=== PATIENT | female | born 1960 | race African-American/Black ===

== ENCOUNTER 2016-08-25 13:23 | Emergency (ER) | payer OTHER ==
[2016-08-25] MEDS ORDERED: ONDANSETRON 4 MG TAB.RAPDIS PO ONE (13:27)
[2016-08-25] MEDS ORDERED: MECLIZINE HCL 25 MG TABLET PO ONE (13:27)
--- NOTE | 2016-08-25 13:30 | ER Document Report ---
ED Medical Screen (RME) - General Stated Complaint: DIZZY Mode of Arrival: Ambulatory Information source: Patient Notes: Patient presents to the emergency department with complaints of feeling dizzy a history of vertigo. Patient reports she vomited one time because of the dizziness. Denies other symptoms such as chest pain fever or diarrhea. Patient reports she took one meclizine this morning at approximately 10:00. I have greeted and performed a rapid initial assessment of this patient. A comprehensive ED assessment and evaluation of the patient, analysis of test results and completion of the medical decision making process will be conducted by additional ED providers. TRAVEL OUTSIDE OF THE [place] IN LAST 30 DAYS: No - Related Data Allergies/Adverse Reactions: acetaminophen [From Darvocet-N 100] Allergy (Intermediate, Verified 08/25/16 13: 25) VOMITING codeine [Codeine] Allergy (Intermediate, Verified 08/25/16 13:25) hives, facial and arm swelling propoxyphene napsylate [From Darvocet-N 100] Allergy (Intermediate, Verified 13:25) VOMITING aspirin [Aspirin] Adverse Reaction (Mild, Verified 08/25/16 13:25) Past Medical History - Past Medical History Cardiac Medical History: Reports: Hx Coronary Artery Disease, Hx Hypercholesterolemia, Hx Hypertension Denies: Hx Heart Attack Pulmonary Medical History: Reports: Hx Asthma, Hx Bronchitis - gets each year Denies: Hx COPD, Hx Pneumonia, Hx Tuberculosis Neurological Medical History: Denies: Hx Cerebrovascular Accident, Hx Seizures Musculoskeltal Medical History: Reports Hx Arthritis - r hand Past Surgical History: Reports: Hx Hysterectomy, Hx Orthopedic Surgery - carpal tunnel repair. Denies: Hx Pacemaker - Immunizations Immunizations up to date: Yes Hx Diphtheria, Pertussis, Tetanus Vaccination: Yes - UTD
--- NOTE | 2016-08-25 13:48 | EKG REPORT ---
SEVERITY:- BORDERLINE ECG - SINUS RHYTHM BORDERLINE T ABNORMALITIES, ANTERIOR LEADS : Confirmed by: Katie Dover 25-Aug-2016 13:47:46
[2016-08-25] MEDS ORDERED: DEXAMETHASONE 4 MG TABLET PO ONE (14:35)
[2016-08-25 15:23] VITALS: BP 132/76
--- NOTE | 2016-08-25 16:19 | ER Document Report ---
ED General - General Chief Complaint: Dizziness Stated Complaint: DIZZY Mode of Arrival: Ambulatory TRAVEL OUTSIDE OF THE [place] IN LAST 30 DAYS: No - HPI Patient complains to provider of: vomiting dizziness Notes: Patient states today she has some vomiting and dizziness patient upon my evaluation is lying on her left side no other distress able to sit up without any difficulty. Patient states feeling sick and unwell since last night. Patient denies any history trauma denies fevers chills diarrhea denies sick contacts unaware for flu status at this time. - Related Data Allergies/Adverse Reactions: acetaminophen [From Darvocet-N 100] Allergy (Intermediate, Verified 08/25/16 13: 25) VOMITING codeine [Codeine] Allergy (Intermediate, Verified 08/25/16 13:25) hives, facial and arm swelling propoxyphene napsylate [From Darvocet-N 100] Allergy (Intermediate, Verified 13:25) VOMITING aspirin [Aspirin] Adverse Reaction (Mild, Verified 08/25/16 13:25) Past Medical History - General Information source: Patient - Social History Smoking Status: Never Smoker Chew tobacco use (# tins/day): No Frequency of alcohol use: None Drug Abuse: None Family History: Reviewed & Not Pertinent Patient has suicidal ideation: No Patient has homicidal ideation: No - Past Medical History Cardiac Medical History: Reports: Hx Coronary Artery Disease, Hx Hypercholesterolemia, Hx Hypertension Denies: Hx Heart Attack Pulmonary Medical History: Reports: Hx Asthma, Hx Bronchitis - gets each year Denies: Hx COPD, Hx Pneumonia, Hx Tuberculosis Neurological Medical History: Denies: Hx Cerebrovascular Accident, Hx Seizures Renal/ Medical History: Denies: Hx Peritoneal Dialysis Musculoskeltal Medical History: Reports Hx Arthritis - r hand Past Surgical History: Reports: Hx Hysterectomy, Hx Orthopedic Surgery - carpal tunnel repair. Denies: Hx Pacemaker - Immunizations Immunizations up to date: Yes Hx Diphtheria, Pertussis, Tetanus Vaccination: Yes - UTD Hx Pneumococcal Vaccination: 04/15/12 Review of Systems - Review of Systems Constitutional: No symptoms reported EENT: No symptoms reported Cardiovascular: No symptoms reported Respiratory: No symptoms reported Gastrointestinal: Nausea Genitourinary: No symptoms reported Female Genitourinary: No symptoms reported Musculoskeletal: No symptoms reported Skin: No symptoms reported Hematologic/Lymphatic: No symptoms reported Neurological/Psychological: Other - Dizziness -: Yes All other systems reviewed and negative Physical Exam - Vital signs Vitals: Temp Pulse Resp BP Pulse Ox 98 F 73 20 138/89 H 99 08/25/16 13:25 08/25/16 13:25 08/25/16 13:25 08/25/16 13:25 08/25/16 13:25 Interpretation: Normal - General General appearance: Appears well, Alert - HEENT Head: Normocephalic, Atraumatic Eyes: Normal Conjunctiva: Normal Cornea: Normal Extraocular movements intact: Yes Eyelashes: Normal Pupils: PERRL Ears: Normal External canal: Normal Tympanic membrane: Normal Sinus: Normal Nasal: Normal Pharynx: Normal Neck: Normal - Respiratory Respiratory status: No respiratory distress Chest status: Nontender Breath sounds: Normal Chest palpation: Normal - Cardiovascular Rhythm: Regular Heart sounds: Normal auscultation Murmur: No - Abdominal Inspection: Normal Distension: No distension Bowel sounds: Normal Tenderness: Nontender Organomegaly: No organomegaly - Back Back: Normal, Nontender - Extremities General upper extremity: Normal inspection, Nontender, Normal color, Normal ROM , Normal temperature General lower extremity: Normal inspection, Nontender, Normal color, Normal ROM , Normal temperature, Normal weight bearing. No: Shellie's sign - Neurological Neuro grossly intact: Yes Cognition: Normal Orientation: AAOx4 [place] Coma Scale Eye Opening: Spontaneous [place] Coma Scale Verbal: Oriented Patricia Coma Scale Motor: Obeys Commands [place] Coma Scale Total: 15 Speech: Normal Motor strength normal: LUE, RUE, LLE, RLE Sensory: Normal - Psychological Associated symptoms: Normal affect, Normal mood - Skin Skin Temperature: Warm Skin Moisture: Dry Skin Color: Normal Course - Re-evaluation Re-evalutation: 08/25/16 19:09 Patient at this time see be asymptomatic. Patient will be discharged home with medications for dizziness and nausea. Patient was encouraged to drink clear fluids will likely developing viral illness. Patient was also educated about the use of Bridger maneuver - Vital Signs Vital signs: Temp Pulse Resp BP Pulse Ox 98.4 F 64 18 132/76 H 97 08/25/16 15:09 08/25/16 15:09 08/25/16 15:09 08/25/16 15:09 08/25/16 15:09 Discharge - Discharge Clinical Impression: Dizziness, Sore throat (viral) Nausea & vomiting Qualifiers: Vomiting type: unspecified Vomiting Intractability: unspecified Qualified Code( s): R11.2 - Nausea with vomiting, unspecified Condition: Good Disposition: HOME, SELF-CARE Instructions: Dizziness ([facility]), Meclizine ([facility]), Vertigo ([facility]), Nausea or Vomiting, Nonspecific ([facility]), Sore Throat ([facility]) Additional Instructions: Your examination today shows no critical etiology. Please follow-up with your primary care physician. Please try the Bridger maneuver at home. Follow the instructions in your discharge papers. Take medications as prescribed. Prescriptions: Ondansetron [Zofran Odt 4 mg Tablet] 1 - 2 tab PO Q4HP PRN #20 tab.rapdis PRN Reason: Meclizine HCl [Motion Relief] 25 mg PO TID #14 tablet Referrals: ANDREW LUJAN MD [Primary Care Provider] - Follow up in 3-5 days
== END 2016-08-25 15:22 | disposition home or self-care (01) ==
LOC: ER 13:23
DX: J02.9 Acute pharyngitis, unspecified (principal); R11.2 Nausea with vomiting, unspecified; R42 Dizziness and giddiness; I10 Essential (primary) hypertension; I25.10 Atherosclerotic heart disease of native coronary artery without angina pectoris; E78.00 Pure hypercholesterolemia, unspecified; Z90.710 Acquired absence of both cervix and uterus; Z88.6 Allergy status to analgesic agent
CPT/HCPCS: 93005; 99284; 93010; S0119

== ENCOUNTER 2016-09-30 13:58 | Emergency (ER) | payer OTHER ==
[2016-09-30] MEDS ORDERED: HYDROCODONE/ACETAMINOPHEN 5-325 MG TABLET PO ONE (15:17)
[2016-09-30] MEDS ORDERED: ONDANSETRON 4 MG TAB.RAPDIS SL ONE (15:17)
--- NOTE | 2016-09-30 15:19 | ER Document Report ---
ED Medical Screen (RME) - General Chief Complaint: Headache Stated Complaint: HEADACHE Time seen by provider: 15:18 Mode of Arrival: Ambulatory Information source: Patient TRAVEL OUTSIDE OF THE [place] IN LAST 30 DAYS: No - HPI Patient complains to provider of: headache, runny nose, nausea Onset: Yesterday Onset/Duration: Gradual Quality of pain: Achy, Dull Severity: Moderate Pain Level: 3 Associated Symptoms: Body/muscle aches, Chills, Headache, Nausea, Sweating Exacerbated by: Denies Relieved by: Denies Similar symptoms previously: No Recently seen / treated by doctor: Yes - Related Data Allergies/Adverse Reactions: acetaminophen [From Darvocet-N 100] Allergy (Intermediate, Verified 09/30/16 14: 18) VOMITING codeine [Codeine] Allergy (Intermediate, Verified 09/30/16 14:18) hives, facial and arm swelling propoxyphene napsylate [From Darvocet-N 100] Allergy (Intermediate, Verified 14:18) VOMITING aspirin [Aspirin] Adverse Reaction (Mild, Verified 09/30/16 14:18) Past Medical History - Social History Chew tobacco use (# tins/day): No Frequency of alcohol use: Occasional Drug Abuse: None - Past Medical History Cardiac Medical History: Reports: Hx Coronary Artery Disease, Hx Hypercholesterolemia, Hx Hypertension Denies: Hx Heart Attack Pulmonary Medical History: Reports: Hx Asthma, Hx Bronchitis - gets each year Denies: Hx COPD, Hx Pneumonia, Hx Tuberculosis Neurological Medical History: Denies: Hx Cerebrovascular Accident, Hx Seizures Renal/ Medical History: Denies: Hx Peritoneal Dialysis Musculoskeltal Medical History: Reports Hx Arthritis - r hand Past Surgical History: Reports: Hx Hysterectomy, Hx Orthopedic Surgery - carpal tunnel repair. Denies: Hx Pacemaker - Immunizations Immunizations up to date: Yes Hx Diphtheria, Pertussis, Tetanus Vaccination: Yes - UTD Physical Exam - Vital signs Vitals: Temp Pulse Resp BP Pulse Ox 98.6 F 112 H 22 H 114/73 95 09/30/16 14:19 09/30/16 14:19 09/30/16 14:19 09/30/16 14:19 09/30/16 14:19 Course - Vital Signs Vital signs: Temp Pulse Resp BP Pulse Ox 98.6 F 112 H 22 H 114/73 95 09/30/16 14:19 09/30/16 14:19 09/30/16 14:19 09/30/16 14:19 09/30/16 14:19
[2016-09-30 15:43] LABS: APPEARANCE,URINE CLEAR; BILIRUBIN,URINE NEGATIVE (NEGATIVE); GLUCOSE, URINE NEGATIVE (NEGATIVE); KETONES,URINE NEGATIVE (NEGATIVE); LEUKOCYTE ESTERASE,URINE MODERATE (NEGATIVE); NITRITE,URINE NEGATIVE (NEGATIVE); PROTEIN,URINE 30 mg/dL (NEGATIVE); URINE SPECIFIC GRAVITY 1.004; UROBILINOGEN,URINE NEGATIVE mg/dL (<2.0)
[2016-09-30 15:46] LABS: HEMATOCRIT 37.2 % (36.0-47.0); HEMOGLOBIN 13.1 g/dL (12.0-15.5); HGB HCT DIFFERENCE 2.1; MEAN CORPUSCULAR HEMOGLOBIN 31.7 pg (27.0-33.4); MEAN CORPUSCULAR HGB CONC 35.3 g/dL (32.0-36.0); MEAN CORPUSCULAR VOLUME 90 fl (80-97); RED BLOOD COUNT 4.15 10^6/uL (3.72-5.28); RED CELL DISTRIBUTION WIDTH 12.8 % (11.5-14.0)
[2016-09-30 15:49] LABS: ALANINE AMINOTRANSFERASE 27 U/L (9-52); ALBUMIN 4.2 g/dL (3.5-5.0); ALKALINE PHOSPHATASE 77 U/L (38-126); ANION GAP 15 (5-19); ASPARTATE AMINO TRANSFERASE 26 U/L (14-36); BILIRUBIN,DIRECT 0.3 mg/dL (0.0-0.4); BLOOD UREA NITROGEN 8 mg/dL (7-20); CALCIUM 9.4 mg/dL (8.4-10.2); CARBON DIOXIDE 32 mmol/L (22-30); CHLORIDE 92 mmol/L (98-107); CREATININE RESULT 0.97 mg/dL (0.52-1.25); GLUCOSE 156 mg/dL (75-110); LIPASE 28.4 U/L (23-300); POTASSIUM 3.2 mmol/L (3.6-5.0); SODIUM 138.7 mmol/L (137-145); TOTAL PROTEIN 7.3 g/dL (6.3-8.2)
[2016-09-30 16:01] LABS: BAND NEUTROPHILS % (MANUAL) 3 % (3-5); BASOPHILS % (MANUAL) 0 % (0-2); EOSINOPHILS % (MANUAL) 0 % (0-6); LYMPHOCYTES % (MANUAL) 5 % (13-45); TOTAL CELLS COUNTED 100
[2016-09-30 16:02] LABS: OVALOCYTES SLIGHT
[2016-09-30 16:03] LABS: POIKILOCYTOSIS SLIGHT
--- NOTE | 2016-09-30 17:07 | ER Document Report ---
ED General - General Chief Complaint: Headache Stated Complaint: HEADACHE Mode of Arrival: Ambulatory Information source: Patient TRAVEL OUTSIDE OF THE [place] IN LAST 30 DAYS: No - HPI Onset: Other - 2 DAYS Onset/Duration: Sudden Quality of pain: Dull, Other - "FEELS LIKE GRAVEL IN MY HEAD" Severity: Mild Associated symptoms: Chills, Nausea, Sweating. denies: Diarrhea, Vomiting Exacerbated by: Standing Relieved by: Supine Similar symptoms previously: Yes - SAYS "VERTIGO" Recently seen / treated by doctor: No - Related Data Allergies/Adverse Reactions: acetaminophen [From Darvocet-N 100] Allergy (Intermediate, Verified 09/30/16 14: 18) VOMITING codeine [Codeine] Allergy (Intermediate, Verified 09/30/16 14:18) hives, facial and arm swelling propoxyphene napsylate [From Darvocet-N 100] Allergy (Intermediate, Verified 14:18) VOMITING aspirin [Aspirin] Adverse Reaction (Mild, Verified 09/30/16 14:18) Home Medications: Current Home Medications Acyclovir [Zovirax 200 mg Capsule] 200 mg PO Q4H 09/30/16 [History] Ammonium Lactate [Amlactin] 57 gm TP BID 09/30/16 [History] Aspirin [Aspirin 81 mg Chewable Tablet] 81 mg PO DAILY 09/30/16 [History] Atenolol/Chlorthalidone [Tenoretic 100 Tablet] 100 mg PO DAILY 09/30/16 [History ] Celecoxib [Celebrex 200 mg Capsule] 200 mg PO DAILY 09/30/16 [History] Duloxetine HCl [Cymbalta] 30 mg PO BID 09/30/16 [History] Fluticasone/Salmeterol [Advair 250-50 Diskus 14 Dose/Diskus] 1 inh IH Q12H 09/30 [History] Losartan/Hydrochlorothiazide [Hyzaar 100-12.5 Tablet] 1 each PO DAILY 09/30/16 [ History] Lurasidone HCl [Latuda] 40 mg PO DAILY 09/30/16 [History] Promethazine HCl [Phenergan 25 mg Tablet] 25 mg PO ASDIR PRN 09/30/16 [History] Valacyclovir HCl [Valacyclovir] 1,000 mg PO TID 09/30/16 [History] Zoster Vaccine Live/Pf [Zostavax Vial] 19,400 unit SQ ASDIR PRN 09/30/16 [ History] Past Medical History - General Information source: Patient - Social History Smoking Status: Never Smoker Chew tobacco use (# tins/day): No Frequency of alcohol use: Occasional Drug Abuse: None Lives with: Family Family History: Reviewed & Not Pertinent Patient has suicidal ideation: No Patient has homicidal ideation: No - Past Medical History Cardiac Medical History: Reports: Hx Coronary Artery Disease, Hx Hypercholesterolemia, Hx Hypertension Denies: Hx Heart Attack Pulmonary Medical History: Reports: Hx Asthma, Hx Bronchitis - gets each year Denies: Hx COPD, Hx Pneumonia, Hx Tuberculosis Neurological Medical History: Denies: Hx Cerebrovascular Accident, Hx Seizures Renal/ Medical History: Denies: Hx Peritoneal Dialysis Musculoskeltal Medical History: Reports Hx Arthritis - r hand Past Surgical History: Reports: Hx Hysterectomy, Hx Orthopedic Surgery - carpal tunnel repair. Denies: Hx Pacemaker - Immunizations Immunizations up to date: Yes Hx Diphtheria, Pertussis, Tetanus Vaccination: Yes - UTD Hx Pneumococcal Vaccination: 04/15/12 Review of Systems - Review of Systems Constitutional: See HPI EENT: Other - TINNITUS, CHRONIC. denies: Eye pain, Blurred vision, Tearing, Ear pain, Throat pain Cardiovascular: No symptoms reported Respiratory: No symptoms reported Gastrointestinal: See HPI Genitourinary: No symptoms reported Female Genitourinary: Post menopausal Musculoskeletal: No symptoms reported Skin: No symptoms reported Neurological/Psychological: See HPI Physical Exam - Vital signs Vitals: Temp Pulse Resp BP Pulse Ox 98.6 F 112 H 22 H 114/73 95 09/30/16 14:19 09/30/16 14:19 09/30/16 14:19 09/30/16 14:19 09/30/16 14:19 Interpretation: Tachycardic, Tachypneic. No: Hypotensive, Hypertensive, Febrile - General General appearance: Appears well, Alert In distress: None - HEENT Head: Normocephalic Eyes: Normal Conjunctiva: Normal Ears: Normal Nasal: Normal Mouth/Lips: Normal Mucous membranes: Normal Pharynx: Normal Neck: Normal, Supple - FLEXES [id number] W/ NO DIFFICULTY - Respiratory Respiratory status: No respiratory distress Breath sounds: Normal - Cardiovascular Rhythm: Regular, Tachycardia Heart sounds: Normal auscultation Murmur: No - Abdominal Inspection: Normal Distension: No distension Bowel sounds: Normal - Back Back: Normal, CVA tenderness - RIGHT - Extremities General upper extremity: Normal inspection General lower extremity: Normal inspection - Neurological Neuro grossly intact: Yes Cognition: Normal Orientation: AAOx4 - Psychological Associated symptoms: Normal affect, Normal mood - Skin Skin Temperature: Warm Skin Moisture: Dry Skin Color: Normal Skin Turgor: Elastic Course - Re-evaluation Re-evalutation: 09/30/16 19:58 Patient reports she feels better, headache much improved. Diagnosis and treatment plan discussed with patient. - Vital Signs Vital signs: Temp Pulse Resp BP Pulse Ox 97.5 F 91 18 108/65 99 09/30/16 19:03 09/30/16 19:03 09/30/16 19:03 09/30/16 19:03 09/30/16 19:03 - Laboratory Result Diagrams: 09/30/16 15:20 09/30/16 15:20 Laboratory results interpreted by me: 09/30/16 09/30/16 09/30/16 15:20 15:20 15:20 WBC 21.0 H Plt Count 105 L Seg Neuts % (Manual) 88 H Lymphocytes % (Manual) 5 L Abs Neuts (Manual) 19.1 H Potassium 3.2 L Chloride 92 L Carbon Dioxide 32 H Est GFR (Non-Af Amer) 59 L Glucose 156 H Urine Protein 30 H Urine Blood LARGE H Ur Leukocyte Esterase MODERATE H Discharge - Discharge Clinical Impression: Pyelonephritis Condition: Stable Disposition: HOME, SELF-CARE Instructions: Acetaminophen, Antibiotic Therapy ([facility]), Pyelonephritis ([facility]), Rocephin ([facility]), Intravenous (IV) Fluids ([facility]), Nitrofurantoin ([facility]) Additional Instructions: REST, DRINK PLENTY OF FLUIDS. TAKE MACROBID DIRECTED. YOU MAY TAKE TYLENOL (ACETAMINOPHEN) IF NEEDED FOR PAIN OR FEVER CONTROL. CONTINUE ALL OF YOUR USUAL MEDICATIONS. FOLLOW UP WITH YOUR PRIMARY CARE PROVIDER IN 3-5 DAYS. RETURN TO E.R. IF YOU GET WORSE, ANY TIME. Prescriptions: Nitrofurantoin/Nitrofuran Mac [Macrobid 100 mg Capsule] 100 mg PO BID #20 capsule Referrals: GLADYS HIGUERA MD [ACTIVE STAFF] - Follow up in 3-5 days
[2016-09-30] MEDS ORDERED: NORMAL SALINE 1000 ML 1,000 ML IV ONE (17:16)
[2016-09-30] MEDS ORDERED: CEFTRIAXONE 1 GM/D5W RTU 50 ML IV ONE (17:17)
[2016-09-30 20:44] VITALS: BP 141/74
== END 2016-09-30 20:43 | disposition home or self-care (01) ==
LOC: ER 13:58
DX: N12 Tubulo-interstitial nephritis, not specified as acute or chronic (principal); R51 Headache; R68.83 Chills (without fever); R11.0 Nausea; H93.19 Tinnitus, unspecified ear; R61 Generalized hyperhidrosis; R00.0 Tachycardia, unspecified; R06.82 Tachypnea, not elsewhere classified; I25.10 Atherosclerotic heart disease of native coronary artery without angina pectoris; I10 Essential (primary) hypertension; Z88.5 Allergy status to narcotic agent
CPT/HCPCS: 99284; 96365; 36415; 87040; 83690; 85025; 87077; 80053; 81001; 87186; S0119; J7030; J0696

== ENCOUNTER 2016-10-02 16:19 | Inpatient (IN) | payer OTHER ==
[2016-10-02] MEDS ORDERED: CEFTRIAXONE 1 GM/D5W RTU 50 ML IV ONE (16:37)
[2016-10-02 17:13] LABS: ABSOLUTE LYMPHOCYTES (AUTO) 0.5 10^3/uL (0.5-4.7); ABSOLUTE MONOCYTES (AUTO) 0.7 10^3/uL (0.1-1.4); ABSOLUTE NEUT (AUTO) 8.6 10^3/uL (1.7-8.2); BASOPHILS % (AUTO) 0.1 % (0-2); EOSINOPHILS % (AUTO) 0.3 % (0-6); HEMATOCRIT 34.6 % (36.0-47.0); HEMOGLOBIN 12.1 g/dL (12.0-15.5); HGB HCT DIFFERENCE 1.7; LYMPHOCYTES % (AUTO) 5.4 % (13-45); MEAN CORPUSCULAR HEMOGLOBIN 31.1 pg (27.0-33.4); MEAN CORPUSCULAR HGB CONC 34.9 g/dL (32.0-36.0); MEAN CORPUSCULAR VOLUME 89 fl (80-97); RED BLOOD COUNT 3.88 10^6/uL (3.72-5.28); RED CELL DISTRIBUTION WIDTH 13.1 % (11.5-14.0); SEGMENTED NEUTROPHILS % (AUTO) 87.2 % (42-78); WHITE BLOOD COUNT 9.8 10^3/uL (4.0-10.5)
[2016-10-02 17:17] LABS: ALANINE AMINOTRANSFERASE 28 U/L (9-52); ALBUMIN 3.5 g/dL (3.5-5.0); ALKALINE PHOSPHATASE 108 U/L (38-126); ANION GAP 16 (5-19); ASPARTATE AMINO TRANSFERASE 36 U/L (14-36); BILIRUBIN,DIRECT 0.5 mg/dL (0.0-0.4); BILIRUBIN,TOTAL 0.8 mg/dL (0.2-1.3); BLOOD UREA NITROGEN 8 mg/dL (7-20); CALCIUM 8.3 mg/dL (8.4-10.2); CARBON DIOXIDE 30 mmol/L (22-30); CHLORIDE 91 mmol/L (98-107); CREATININE RESULT 0.97 mg/dL (0.52-1.25); GLUCOSE 114 mg/dL (75-110); SODIUM 136.7 mmol/L (137-145); TOTAL PROTEIN 6.6 g/dL (6.3-8.2)
[2016-10-02 17:20] LABS: POTASSIUM 2.7 mmol/L (3.6-5.0)
[2016-10-02] MEDS ORDERED: POTASSIUM CHLORIDE 20 MEQ/15 ML UDCUP PO ONE (17:27)
[2016-10-02] MEDS ORDERED: NORMAL SALINE 1000 ML 1,000 ML IV ONE (18:21)
[2016-10-02] MEDS ORDERED: ONDANSETRON HCL INJ/PF 4 MG/2 ML SDV IV ONE (18:22)
[2016-10-02 18:25] LABS: APPEARANCE,URINE CLOUDY; BILIRUBIN,URINE NEGATIVE (NEGATIVE); GLUCOSE, URINE NEGATIVE (NEGATIVE); KETONES,URINE TRACE mg/dL (NEGATIVE); LEUKOCYTE ESTERASE,URINE SMALL (NEGATIVE); NITRITE,URINE NEGATIVE (NEGATIVE); PROTEIN,URINE 100 mg/dL (NEGATIVE); URINE SPECIFIC GRAVITY 1.015
--- NOTE | 2016-10-02 18:55 | ER Document Report ---
ED General - General Chief Complaint: Abnormal Lab Results Stated Complaint: ABNORMAL LABS Time seen by provider: 18:53 Mode of Arrival: Ambulatory Information source: Patient Notes: This is a 56-year-old female with a history of asthma/COPD (BiPAP), arthritis and had been experiencing chills, muscle aches, back pain and flank pain. Patient was noted to have leukocytosis 2 days ago in the ER and was treated with IV ceftriaxone for UTI. Subsequent blood cultures have come back positive for gram-negative rods 2. He shouldn't does report still feeling bad: Significant decreased by mouth intake, nausea, back pain, chills subjective fevers. TRAVEL OUTSIDE OF THE [place] IN LAST 30 DAYS: No - HPI Onset: Last week Onset/Duration: Gradual Quality of pain: Dull Severity: Moderate Pain Level: 3 Associated symptoms: Chills, Fever, Nausea. denies: Shortness of breath Exacerbated by: Movement Relieved by: Remaining still Similar symptoms previously: Yes Recently seen / treated by doctor: Yes - Related Data Allergies/Adverse Reactions: acetaminophen [From Darvocet-N 100] Allergy (Intermediate, Verified 10/02/16 16: 29) VOMITING codeine [Codeine] Allergy (Intermediate, Verified 10/02/16 16:29) hives, facial and arm swelling propoxyphene napsylate [From Darvocet-N 100] Allergy (Intermediate, Verified 16:29) VOMITING aspirin [Aspirin] Adverse Reaction (Mild, Verified 10/02/16 16:29) Past Medical History - General Information source: Patient - Social History Smoking Status: Never Smoker Cigarette use (# per day): No Chew tobacco use (# tins/day): No Frequency of alcohol use: None Drug Abuse: None Lives with: Family Family History: Reviewed & Not Pertinent Patient has suicidal ideation: No Patient has homicidal ideation: No - Past Medical History Cardiac Medical History: Reports: Hx Coronary Artery Disease, Hx Hypercholesterolemia, Hx Hypertension Denies: Hx Heart Attack Pulmonary Medical History: Reports: Hx Asthma, Hx Bronchitis - gets each year Denies: Hx COPD, Hx Pneumonia, Hx Tuberculosis Neurological Medical History: Denies: Hx Cerebrovascular Accident, Hx Seizures Renal/ Medical History: Denies: Hx Peritoneal Dialysis Musculoskeltal Medical History: Reports Hx Arthritis - r hand Past Surgical History: Reports: Hx Hysterectomy, Hx Orthopedic Surgery - carpal tunnel repair. Denies: Hx Pacemaker - Immunizations Immunizations up to date: Yes Hx Diphtheria, Pertussis, Tetanus Vaccination: Yes - UTD Hx Pneumococcal Vaccination: 04/15/12 Review of Systems - Review of Systems Constitutional: denies: Chills, Fever EENT: No symptoms reported Cardiovascular: No symptoms reported Respiratory: No symptoms reported Gastrointestinal: See HPI Genitourinary: See HPI Female Genitourinary: No symptoms reported Musculoskeletal: See HPI Skin: No symptoms reported Hematologic/Lymphatic: No symptoms reported Neurological/Psychological: No symptoms reported Physical Exam - Vital signs Vitals: Temp Pulse Resp BP Pulse Ox 98.4 F 96 20 111/71 98 10/02/16 16:24 10/02/16 16:24 10/02/16 16:24 10/02/16 16:24 10/02/16 16:24 Notes: Physical exam: GENERAL: 56-year-old female, alert and oriented 3, appears in distress HEAD: Atraumatic, normocephalic. EYES: Pupils equal round and reactive to light, extraocular movements intact, sclera anicteric, conjunctiva are normal. ENT: TMs normal, nares patent, oropharynx clear without exudates. Moist mucous membranes. NECK: Normal range of motion, supple without lymphadenopathy or JVD. LUNGS: Breath sounds clear to auscultation bilaterally and equal. No wheezes rales or rhonchi. HEART: Regular rate and rhythm without murmurs, rubs or gallops. ABDOMEN: Soft, normoactive bowel sounds. Patient does have positive right CVA tenderness to palpation. No guarding, no rebound. No masses appreciated. EXTREMITIES: Normal range of motion, no pitting or edema. No clubbing or cyanosis. NEUROLOGICAL: Cranial nerves II through XII grossly intact. Normal speech, normal gait. PSYCH: Normal mood, normal affect. SKIN: Warm, Dry, normal turgor, no rashes or lesions noted. Course - Re-evaluation Re-evalutation: 10/02/16 21:44 IV ceftriaxone given. Coverage expanded IV Zosyn. Patient given IV KCl, by mouth KCl and IV antiemetics. The plan will be to continue IV antibiotics, IV fluids for gram-negative bacteremia with pyelonephritis. - Vital Signs Vital signs: Temp Pulse Resp BP Pulse Ox 98.7 F 92 25 H 125/83 95 10/02/16 18:51 10/02/16 18:51 10/02/16 21:11 10/02/16 21:11 10/02/16 18:51 - Laboratory Result Diagrams: 10/02/16 16:45 10/02/16 16:45 Laboratory results interpreted by me: 10/02/16 10/02/16 10/02/16 16:45 16:45 17:50 Hct 34.6 L Plt Count 95 L Seg Neutrophils % 87.2 H Lymphocytes % 5.4 L Absolute Neutrophils 8.6 H Sodium 136.7 L Potassium 2.7 L* Chloride 91 L Est GFR (Non-Af Amer) 59 L Glucose 114 H Calcium 8.3 L Direct Bilirubin 0.5 H Urine Protein 100 H Urine Ketones TRACE H Urine Blood MODERATE H Urine Urobilinogen 2.0 H Ur Leukocyte Esterase SMALL H - Diagnostic Test Radiology reviewed: Image reviewed, Reports reviewed - CT of the abdomen shows no obstructive uropathy Critical Care Note - Critical Care Note Total time excluding time spent on procedures (mins): 60 Discharge - Discharge Clinical Impression: pyelonephritis, gram-negative bacteremia Condition: Serious Disposition: ADMITTED INPATIENT Admitting Provider: Hospitalist - Dr. Schneider Unit Admitted: Telemetry
[2016-10-02] MEDS: POTASSI CL 20 MEQ/50 ML RIDER 50 ML IV SCH ×2 (19:18→20:59)
[2016-10-02] MEDS ORDERED: DIPHENHYDRAMINE HCL 50 MG/ML VIAL IV ONE (20:32)
[2016-10-02] MEDS ORDERED: MORPHINE SULFATE 10 MG/ML INJ IV PRN ×2 (20:32→23:13)
[2016-10-02] MEDS ORDERED: PIPERACILLIN/TAZOBACTAM 3.375 GM VIAL IV ONE (21:38)
[2016-10-02] MEDS ORDERED: POTASSI CL 20 MEQ/1/2NS 1L 1,000 ML IV ONE (21:42)
[2016-10-02] MEDS ORDERED: MAGNESIUM SULFATE/D5W 1 GM/100 ML RTUPB IV ONE (23:44)
[2016-10-03] MEDS ORDERED: MAGNESIUM SULFATE/D5W 1 GM/100 ML RTUPB IV SCH
[2016-10-03] MEDS ORDERED: IPRATROPIUM/ALBUTEROL 0.5-2.5 MG/3 ML AMPUL NEB PRN (00:41)
[2016-10-03] MEDS ORDERED: MAGNESIUM HYDROXIDE SUSP 30 ML UDCUP PO PRN (00:41)
[2016-10-03 01:15] LABS: HEMATOCRIT 31.6 % (36.0-47.0); HGB HCT DIFFERENCE 1.4; MEAN CORPUSCULAR HEMOGLOBIN 31.3 pg (27.0-33.4); MEAN CORPUSCULAR HGB CONC 34.8 g/dL (32.0-36.0); MEAN CORPUSCULAR VOLUME 90 fl (80-97); RED BLOOD COUNT 3.51 10^6/uL (3.72-5.28); RED CELL DISTRIBUTION WIDTH 13.1 % (11.5-14.0); WHITE BLOOD COUNT 7.9 10^3/uL (4.0-10.5)
--- NOTE | 2016-10-03 01:20 | PDOC H&P ---
History of Present Illness Admission Date/PCP: 10/02/16 21:51 Lucy Munoz, [facility]. Patient complains of: abn labs History of Present Illness: SASHA DURANT is a 56 year old -[place]ish female with underlying mild asthma, esophageal reflux disease, occasional vertigo, post traumatic stress disorder, hyperlipidemia, partial hearing loss, occasional urinary incontinence , arthritis, history of hypokalemia, obstructive sleep apnea, with uncertain CPAP settings, and occasional vaginal yeast infection, but with no specific history of urinary tract infections or pyelonephritis, who presents to the emergency room for evaluation of above complaint. Patient has been discussed with emergency room physician who evaluated the patient. For the past 4 days, she's had intermittent fever and shaking chills along with nausea, poor by mouth intake, back pain, primarily on the right and some right flank pain. Pain is combination of sharp and cramping, increasing with movement. No diarrhea. Was noted to have leukocytosis 2 days ago in the emergency room, was treated with Rocephin, and was sent home with a prescription for Macrodantin. patient states she took as prescribed. However, above symptoms have progressed. Culture results returned showing gram-negative rods. Patient was contacted and was told to come back to the emergency room for further evaluation and treatment. Laboratory results are listed in [facility] and are reviewed. X-ray summary results are listed below, with full report(s) reviewed. . Social history/personal habits: . 3 adult children. Takes care of her 15-year-old deaf grandson. No use of alcohol tobacco or illicit drugs. Allergies/adverse reactions are listed in [facility] and are reviewed. Home medications Home medications initially autopopulated into [employer] may not accurately reflect patient's true medications, dosages, and/or frequencies. 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 Unfortunately, patient uncertain of all her medications/dosages/frequencies. REVIEW OF SYSTEMS: Constitutional: See history and present illness. Eyes: Wears glasses. ENT: No swallowing problems or complaints. Partial hearing loss. Pulmonary: No current complaints. Cardiovascular: No current complaints, including chest pain. Gastrointestinal: See history and present illness. Skin: No current complaints, including rashes. Hematologic: Easy bruising. Neurologic: No current complaints, including numbness or tingling. Musculoskeletal: Joint pain from arthritis. Psychiatric: No current complaints, including anxiety or depression. Endocrine: No current complaints, including polyuria. Genitourinary: See history and present illness. 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 5 feet 6 inches tall. 87.2 kg. BMI 31 kg/m. Blood pressure 141/80. Pulse 98 and regular. Respirations are 22 and unlabored. 100% saturation on room air. Temperature 98.7. Slightly obese otherwise well-developed -[place]ish female appearing approximately her stated age. Appears not to feel very well. Otherwise, pleasant awake alert and cooperative. Mildly anxious, without agitation. Skin is warm and dry. No grossly obvious evidence of rash in areas of skin examined. No subcutaneous nodules palpated. ENT: Hearing grossly normal to normal conversation. Tongue midline on protrusion pink and slightly tacky. Eyes: No scleral icterus. Pupils equal and reactive to light at 4 mm. [place] conjunctivae. Neck is supple and nontender to gentle active range of motion and palpation. Midline trachea. No palpable thyroid nodule mass enlargement or tenderness. Lymphatic: No palpable cervical or clavicular nodes. Neck and lymphatic exams limited by patient body habitus. Psychiatric: Reasonable insight into acute and chronic medical issues. Oriented to time location and why here. Lungs: Auscultation reveals clear and equal breath sounds bilaterally. No use of accessory respiratory muscles. Cardiovascular: Heart regular rate and rhythm, without gallop murmur or rub. No carotid or abdominal aortic bruits. No ankle or pedal edema. Faintly palpable dorsalis pedis pulses. Abdomen: soft, slightly obese, with positive bowel sounds. Mild right flank and costovertebral angle tenderness. None on the left. No evidence of guarding or peritoneal signs. Unable to adequately evaluate abdomen for masses or organomegaly due to body habitus. Extremities: Feet are warm and dry. No calf tenderness to compression. No grossly obvious visual evidence of calf swelling. Gentle manipulation of lower extremities fails to reveal any obvious evidence of injury or instability to knees hips or ankles. Neurologic: Moves upper extremities grossly normally. Patellar reflexes absent. Absent Babinski. Light touch is intact at feet. Dorsiflexion and plantarflexion of feet 5 / 5 and symmetric. Past Medical History Cardiac Medical History: Reports: Hyperlipidema, Hypertension Denies: Congestive Heart Failure, DVT, Myocardial Infarction, Pulmonary Embolism Pulmonary Medical History: Reports: Asthma, Bronchitis - gets each year, Sleep Apnea - Uncertain CPAP settings. Room air. Denies: Chronic Obstructive Pulmonary Disease (COPD), Pneumonia, Tuberculosis EENT Medical History: Reports: Eyes - Glasses, Ears - Partial hearing loss Neurological Medical History: Reports: Other - Occasional problems with vertigo Denies: Hemorrhagic CVA, Ischemic CVA, Seizures Endocrine Medical History: Denies: Diabetes Mellitus Type 1, Diabetes Mellitus Type 2, Hyperthyroidism, Hypothyroidism Renal/ Medical History: Reports: None GI Medical History: Reports: Gastroesophageal Reflux Disease Denies: Cirrhosis, Hepatitis, Peptic Ulcer Disease Musculoskeltal Medical History: Reports: Arthritis - r hand Skin Medical History: Reports: None Psychiatric Medical History: Reports: Post Traumatic Stress Disorder Denies: Alcohol Dependency, Depression, General Anxiety Disorder, Substance Abuse, Tobacco Dependency Hematology: Reports: Other - Easy bruising Denies: Anemia Infectious Medical History: Denies: Hepatitis B, Hepatitis C Past Surgical History Past Surgical History: Reports: Hysterectomy, Orthopedic Surgery - carpal tunnel repair Denies: Pacemaker Social History Information Source: Patient, Emergency Med Personnel, [facility] Records Lives with: Spouse/Significant other Smoking Status: Never Smoker Frequency of Alcohol Use: None Hx Recreational Drug Use: No Drugs: None Hx Prescription Drug Abuse: No - Advance Directive Resuscitation Status: Full Code Surrogate healthcare decision maker:: Family History Family History: Reviewed & Not Pertinent Parental Family History Reviewed: Yes - father of a stroke. Mother of a myocardial infarction. Children Family History Reviewed: Yes - Children are healthy Sibling(s) Family History Reviewed.: Yes - Brother with history of alcohol abuse. Sister is ; she was diabetic and hypertensive. Medication/Allergy Home Medications: Aspirin [Adult Low Dose Aspirin EC] 81 mg PO DAILY 10/03/16 Brimonidine Tartrate [Alphagan P] 1 drop OU BID 10/03/16 Bupropion HCl [Wellbutrin Xl 300mg 24hr Tablet] 300 mg PO DAILY 10/03/16 Chlorpromazine HCl [Thorazine 50 mg Tablet] 50 mg PO BIDP PRN 10/03/16 Estrogens,Conjugated [Premarin 0.625 mg Tablet] 0.0625 mg PO DAILY 10/03/16 Fenofibrate Nanocrystallized [Fenofibrate] 48 mg PO DAILY 10/03/16 Latanoprost [Xalatan 0.005% Oph Soln 2.5 ml] 1 drop OU QHS 10/03/16 Losartan Potassium [Cozaar 100 mg Tablet] 100 mg PO DAILY 10/03/16 Lurasidone HCl [Latuda] 60 mg PO DAILY 10/03/16 Zolpidem Tartrate [Ambien] 10 mg PO HSP PRN 10/03/16 Allergies/Adverse Reactions: codeine [Codeine] Allergy (Intermediate, Verified 10/03/16 00:34) hives, facial and arm swelling propoxyphene napsylate [From Darvocet-N 100] Allergy (Intermediate, Verified 16:29) VOMITING aspirin [Aspirin] Adverse Reaction (Mild, Verified 10/02/16 16:29) Physical Exam Vital Signs: Temp Pulse Resp BP Pulse Ox 98.7 F 78 24 H 131/84 H 97 10/02/16 18:51 10/02/16 21:38 10/02/16 23:03 10/02/16 23:03 10/02/16 23:03 Results Impressions: Limited or Localized CT 10/02/16 18:56 IMPRESSION: Minimal right-sided retroperitoneal fat stranding, nonspecific. No calcified urinary stones or evidence of obstruction. Assessment & Plan - Diagnosis (1) Bacteremia Is this a current diagnosis for this admission?: YesPlan: Cefepime. (2) Hypokalemia Is this a current diagnosis for this admission?: YesPlan: Chronic intermittent problem for patient. Potassium and magnesium supplement. Follow-up chemistry. (3) Hypomagnesemia Is this a current diagnosis for this admission?: Yes (4) Pyelonephritis Is this a current diagnosis for this admission?: YesPlan: Cefepime. I have strongly encouraged patient not to get out of bed without notifying staff , to avoid a fall with injury. Knee high SCDs for DVT prophylaxis,; with thrombocytopenia, will forego Lovenox or heparin at this time. Consider Arixtra if platelets remain low on follow-up labs. Impression and plans were discussed with patient, who concurs. Time spent in evaluation and management of patient: 61 minutes. (5) Asthma Qualifiers: Asthma severity: unspecified severity Asthma complication type: uncomplicated Qualified Code(s): J45.909 - Unspecified asthma, uncomplicated Is this a current diagnosis for this admission?: YesPlan: When necessary DuoNeb. (6) CHER (obstructive sleep apnea) Is this a current diagnosis for this admission?: YesPlan: CPAP. (7) PTSD (post-traumatic stress disorder) Is this a current diagnosis for this admission?: YesPlan: Resume home medications as appropriate once these have been determined and reviewed. (8) Thrombocytopenia Is this a current diagnosis for this admission?: YesPlan: Likely due to underlying infection. Follow-up CBC. - Inpatient Certification Based on my medical assessment, after consideration of the patient's comorbidities, presenting symptoms, or acuity I expect that the services needed warrant INPATIENT care.: Yes I certify that my determination is in accordance with my understanding of Medicare's requirements for reasonable and necessary INPATIENT services [42 CFR 412.3e].: Yes Medical Necessity: Need Close Monitoring Due to Risk of Patient Decompensation, Need For IV Fluids, Need for IV Antibiotics, Risk of Complication if Not Cared For in Hospital Post Hospital Care: D/C or Transfer Summary
[2016-10-03 01:27] LABS: ANION GAP 12 (5-19); BLOOD UREA NITROGEN 5 mg/dL (7-20); CALCIUM 7.8 mg/dL (8.4-10.2); CARBON DIOXIDE 27 mmol/L (22-30); CHLORIDE 96 mmol/L (98-107); CREATININE RESULT 0.78 mg/dL (0.52-1.25); GLUCOSE 137 mg/dL (75-110); MAGNESIUM 1.8 mg/dL (1.6-2.3); POTASSIUM 3.1 mmol/L (3.6-5.0); SODIUM 134.5 mmol/L (137-145)
[2016-10-03] MEDS: POTASSI CL 20 MEQ/50 ML RIDER 20 MEQ/50 ML RTUPB IV SCH ×2 (04:26→06:29)
[2016-10-03] MEDS ORDERED: CEFEPIME 2 GM/D5W RTU 50 ML IV SCH (06:00)
[2016-10-03 07:47] LABS: ANION GAP 12 (5-19); BLOOD UREA NITROGEN 4 mg/dL (7-20); CALCIUM 7.7 mg/dL (8.4-10.2); CARBON DIOXIDE 27 mmol/L (22-30); CHLORIDE 95 mmol/L (98-107); CREATININE RESULT 0.83 mg/dL (0.52-1.25); GLUCOSE 120 mg/dL (75-110); POTASSIUM 3.2 mmol/L (3.6-5.0); SODIUM 134.3 mmol/L (137-145)
[2016-10-03] MEDS: ACETAMINOPHEN 325 MG TABLET PO PRN ×2 (08:22→23:29)
[2016-10-03] MEDS ORDERED: CEFEPIME HCL 2 GM in DEXTROSE 5%-WATER 50 ML IV SCH (10:00)
[2016-10-03] MEDS ORDERED: DOCUSATE SODIUM 100 MG/10 ML UDC PO SCH (10:00)
[2016-10-03] MEDS ORDERED: KETOROLAC TROMETHAMINE INJ/PF 30 MG/1 ML SDV IV ONE (10:11)
[2016-10-03] MEDS ORDERED: CHLORPROMAZINE HCL 50 MG TABLET PO PRN (15:48)
[2016-10-03] MEDS ORDERED: (PENDING PHARMACY ID) (Zolpidem Tartrate [Ambien] 10 MG) PO PRN (15:48)
--- NOTE | 2016-10-03 16:10 | PDOC PROGRESS REPORT ---
Subjective Progress Note for:: 10/03/16 Subjective:: Patient seen on morning rounds. She is presently resting in bed. She is slightly tearful because of pain. She states the nurse to give her Tylenol earlier. She is having significant right flank pain. She denies any nausea, abdominal pain or diarrhea. Negative chest pain, dyspnea or dizziness. Rest of review of systems is negative Physical Exam Vital Signs: Temp Pulse Resp BP Pulse Ox 98.0 F 80 18 118/71 100 10/03/16 12:00 10/03/16 14:00 10/03/16 14:00 10/03/16 12:00 10/03/16 14:00 Intake & Output 10/02/16 10/03/16 10/04/16 06:59 06:59 06:59 Intake Total 50 Balance 50 Weight 89.7 kg General appearance: PRESENT: no acute distress, well-developed, well-nourished Head exam: PRESENT: atraumatic, normocephalic Eye exam: PRESENT: conjunctiva pink, EOMI, PERRLA. ABSENT: scleral icterus Ear exam: PRESENT: normal external ear exam Mouth exam: PRESENT: moist, tongue midline Neck exam: ABSENT: carotid bruit, JVD, lymphadenopathy, thyromegaly Respiratory exam: PRESENT: clear to auscultation benny. ABSENT: rales, rhonchi, wheezes Cardiovascular exam: PRESENT: RRR. ABSENT: diastolic murmur, rubs, systolic murmur Pulses: PRESENT: normal dorsalis pedis pul Vascular exam: PRESENT: normal capillary refill GI/Abdominal exam: PRESENT: normal bowel sounds, soft. ABSENT: distended, guarding, mass, organolmegaly, rebound, tenderness Rectal exam: PRESENT: deferred Extremities exam: PRESENT: full ROM. ABSENT: calf tenderness, clubbing, pedal edema Neurological exam: PRESENT: alert, awake, oriented to person, oriented to place , oriented to time, oriented to situation, CN II-XII grossly intact. ABSENT: motor sensory deficit Psychiatric exam: PRESENT: appropriate affect, normal mood. ABSENT: homicidal ideation, suicidal ideation Skin exam: PRESENT: dry, intact, warm. ABSENT: cyanosis, rash Results Laboratory Results: 10/03/16 01:00 10/03/16 06:55 10/03/16 10/03/16 10/03/16 01:00 01:00 06:55 WBC 7.9 RBC 3.51 L Hgb 11.0 L Hct 31.6 L MCV 90 MCH 31.3 MCHC 34.8 RDW 13.1 Plt Count 89 L Sodium 134.5 L 134.3 L Potassium 3.1 L 3.2 L Chloride 96 L 95 L Carbon Dioxide 27 27 Anion Gap 12 12 BUN 5 L 4 L Creatinine 0.78 0.83 Est GFR ( Amer) > 60 > 60 Est GFR (Non-Af Amer) > 60 > 60 Glucose 137 H 120 H Calcium 7.8 L 7.7 L Magnesium 1.8 Impressions: Limited or Localized CT 10/02/16 18:56 IMPRESSION: Minimal right-sided retroperitoneal fat stranding, nonspecific. No calcified urinary stones or evidence of obstruction. Assessment & Plan - Diagnosis (1) Bacteremia Is this a current diagnosis for this admission?: YesPlan: Patient reportedly had positive blood cultures 2 out of 2 bottles for gram- negative rods at [facility]. The cultures are pending here. We will continue IV broad-spectrum antibiotics. (2) Pyelonephritis Is this a current diagnosis for this admission?: YesPlan: Patient hasn't been treated for a UTI. 4 days prior with Macrodantin. Urine culture and sensitivity showed bacteria to be resistant to back again. Microbiology states urine culture shows ESBL. Patient was placed on IV Invanz. (3) Hypokalemia Is this a current diagnosis for this admission?: YesPlan: Repleted we'll continue to monitor. (4) Hypomagnesemia Is this a current diagnosis for this admission?: YesPlan: repleted continue to monitor. (5) CHER (obstructive sleep apnea) Is this a current diagnosis for this admission?: Yes (6) Thrombocytopenia Is this a current diagnosis for this admission?: YesPlan: most likely secondary sepsis (7) Asthma Qualifiers: Asthma severity: unspecified severity Asthma complication type: uncomplicated Qualified Code(s): J45.909 - Unspecified asthma, uncomplicated Is this a current diagnosis for this admission?: YesPlan: Continue inhalers and when necessary nebulizer treatments. (8) PTSD (post-traumatic stress disorder) Is this a current diagnosis for this admission?: YesPlan: Continue home medications. - Time Time Spent with patient: 25-34 minutes Critical Time spent with patient: 15-24 minutes Medications reviewed and adjusted accordingly: Yes Anticipated discharge: Home
[2016-10-03] MEDS: MORPHINE SULFATE 10 MG/ML INJ IV PRN (17:59)
[2016-10-03] MEDS ORDERED: (PENDING PHARMACY ID) (Brimonidine Tartrate [Alphagan P] 1 DROP) OU SCH (18:00)
[2016-10-03] MEDS: ERTAPENEM SODIUM 1 GM in NORMAL SALINE 50 ML IV SCH (18:13)
[2016-10-03] MEDS: DOCUSATE SODIUM 100 MG CAPSULE PO SCH (18:13)
[2016-10-03] MEDS ORDERED: ZOLPIDEM TARTRATE 5 MG TABLET PO PRN (22:00)
[2016-10-03] MEDS: LATANOPROST 0.005% OPH SOLN 2.5 ML OU SCH (23:30)
[2016-10-03] MEDS: BUPROPION HCL 100 MG TABLET PO SCH (23:30)
[2016-10-03] MEDS: POTASSI CL 20 MEQ/NS 1L 1,000 ML IV PRN (23:38)
[2016-10-04] MEDS: KETOROLAC TROMETHAMINE INJ/PF 30 MG/1 ML SDV IV PRN (03:40)
[2016-10-04] MEDS: POTASSI CL 20 MEQ/NS 1L 1,000 ML IV PRN (06:52)
[2016-10-04] MEDS: BUPROPION HCL 100 MG TABLET PO SCH ×3 (06:52→21:02)
[2016-10-04] MEDS ORDERED: (PENDING PHARMACY ID) (Lurasidone Hcl [Latuda] 60 MG) PO SCH (10:00)
[2016-10-04] MEDS: MORPHINE SULFATE 10 MG/ML INJ IV PRN (11:30)
[2016-10-04] MEDS: ASPIRIN 81 MG TABLET, ENT COATED PO SCH (11:45)
[2016-10-04] MEDS: DOCUSATE SODIUM 100 MG CAPSULE PO SCH ×2 (11:46→20:45)
--- NOTE | 2016-10-04 13:49 | PDOC PROGRESS REPORT ---
Subjective Progress Note for:: 10/04/16 Subjective:: Patient seen on morning rounds. She is presently resting in bed. She states she is feeling better, but continues to have intermittent right flank pain. She denies any nausea, abdominal pain or diarrhea. Negative chest pain, dyspnea or dizziness. Rest of review of systems is negative Physical Exam Vital Signs: Temp Pulse Resp BP Pulse Ox 97.8 F 81 17 154/90 H 100 10/04/16 12:00 10/04/16 12:00 10/04/16 12:00 10/04/16 12:00 10/04/16 12:00 Intake & Output 10/03/16 10/04/16 10/05/16 06:59 06:59 06:59 Intake Total 50 3047 Output Total 1700 Balance 50 1347 Weight 89.7 kg 89.7 kg General appearance: PRESENT: no acute distress, obese, well-developed, well- nourished Head exam: PRESENT: atraumatic, normocephalic Eye exam: PRESENT: conjunctiva pink, EOMI, PERRLA. ABSENT: scleral icterus Ear exam: PRESENT: normal external ear exam Mouth exam: PRESENT: moist, tongue midline Neck exam: ABSENT: carotid bruit, JVD, lymphadenopathy, thyromegaly Respiratory exam: PRESENT: clear to auscultation benny. ABSENT: rales, rhonchi, wheezes Cardiovascular exam: PRESENT: RRR. ABSENT: diastolic murmur, rubs, systolic murmur Pulses: PRESENT: normal dorsalis pedis pul Vascular exam: PRESENT: normal capillary refill GI/Abdominal exam: PRESENT: normal bowel sounds, soft. ABSENT: distended, guarding, mass, organolmegaly, rebound, tenderness Rectal exam: PRESENT: deferred Extremities exam: PRESENT: full ROM. ABSENT: calf tenderness, clubbing, pedal edema Neurological exam: PRESENT: alert, awake, oriented to person, oriented to place , oriented to time, oriented to situation, CN II-XII grossly intact. ABSENT: motor sensory deficit Psychiatric exam: PRESENT: appropriate affect, normal mood. ABSENT: homicidal ideation, suicidal ideation Skin exam: PRESENT: dry, intact, warm. ABSENT: cyanosis, rash Results Laboratory Results: 10/03/16 01:00 10/03/16 06:55 Impressions: Limited or Localized CT 10/02/16 18:56 IMPRESSION: Minimal right-sided retroperitoneal fat stranding, nonspecific. No calcified urinary stones or evidence of obstruction. Assessment & Plan - Diagnosis (1) Bacteremia Is this a current diagnosis for this admission?: YesPlan: Patient reportedly had positive blood cultures 2 out of 2 bottles for gram- negative rods at [facility]. The blood cultures from [facility] grew ESBL. We will continue IV broad-spectrum antibiotics. (2) Pyelonephritis Is this a current diagnosis for this admission?: YesPlan: Patient hasn't been treated for a UTI. 4 days prior with Macrodantin. Urine culture and sensitivity showed bacteria to be resistant to back again. Microbiology states urine culture shows ESBL. Patient was placed on IV Invanz. (3) Hypokalemia Is this a current diagnosis for this admission?: YesPlan: Repleted we'll continue to monitor. (4) Hypomagnesemia Is this a current diagnosis for this admission?: YesPlan: repleted continue to monitor. (5) CHER (obstructive sleep apnea) Is this a current diagnosis for this admission?: Yes (6) Thrombocytopenia Is this a current diagnosis for this admission?: YesPlan: most likely secondary sepsis (7) Asthma Qualifiers: Asthma severity: unspecified severity Asthma complication type: uncomplicated Qualified Code(s): J45.909 - Unspecified asthma, uncomplicated Is this a current diagnosis for this admission?: YesPlan: Continue inhalers and when necessary nebulizer treatments. (8) PTSD (post-traumatic stress disorder) Is this a current diagnosis for this admission?: YesPlan: Continue home medications. - Time Time Spent with patient: 25-34 minutes Critical Time spent with patient: 15-24 minutes Medications reviewed and adjusted accordingly: Yes Anticipated discharge: Home
[2016-10-04] MEDS: LOSARTAN POTASSIUM 50 MG TABLET PO SCH (16:32)
[2016-10-04] MEDS: ESTROGENS,CONJUGATED 0.625 MG TABLET PO SCH (16:33)
[2016-10-04] MEDS: ACETAMINOPHEN 325 MG TABLET PO PRN ×2 (16:40→20:45)
[2016-10-04] MEDS: FENOFIBRATE NANOCRYSTALLIZED 48 MG TABLET PO SCH (20:40)
[2016-10-04] MEDS: ERTAPENEM SODIUM 1 GM in NORMAL SALINE 50 ML IV SCH (20:45)
[2016-10-04] MEDS: LATANOPROST 0.005% OPH SOLN 2.5 ML OU SCH (21:02)
[2016-10-05] MEDS: KETOROLAC TROMETHAMINE INJ/PF 30 MG/1 ML SDV IV PRN ×3 (04:00→22:30)
[2016-10-05 04:48] LABS: ABSOLUTE LYMPHOCYTES (AUTO) 2.1 10^3/uL (0.5-4.7); ABSOLUTE MONOCYTES (AUTO) 1.9 10^3/uL (0.1-1.4); ABSOLUTE NEUT (AUTO) 5.7 10^3/uL (1.7-8.2); BASOPHILS % (AUTO) 0.4 % (0-2); HEMOGLOBIN 11.3 g/dL (12.0-15.5); HGB HCT DIFFERENCE 1.9; LYMPHOCYTES % (AUTO) 21.2 % (13-45); MEAN CORPUSCULAR HEMOGLOBIN 31.2 pg (27.0-33.4); MEAN CORPUSCULAR HGB CONC 35.2 g/dL (32.0-36.0); MEAN CORPUSCULAR VOLUME 89 fl (80-97); MONOCYTES % (AUTO) 19.7 % (3-13); RED BLOOD COUNT 3.61 10^6/uL (3.72-5.28); RED CELL DISTRIBUTION WIDTH 12.9 % (11.5-14.0); SEGMENTED NEUTROPHILS % (AUTO) 58.7 % (42-78); WHITE BLOOD COUNT 9.7 10^3/uL (4.0-10.5)
[2016-10-05 05:01] LABS: ANION GAP 14 (5-19); BLOOD UREA NITROGEN 3 mg/dL (7-20); CALCIUM 8.2 mg/dL (8.4-10.2); CARBON DIOXIDE 27 mmol/L (22-30); CHLORIDE 102 mmol/L (98-107); CREATININE RESULT 0.63 mg/dL (0.52-1.25); GLUCOSE 111 mg/dL (75-110); MAGNESIUM 1.6 mg/dL (1.6-2.3); POTASSIUM 3.3 mmol/L (3.6-5.0); SODIUM 143.4 mmol/L (137-145)
[2016-10-05] MEDS: BUPROPION HCL 100 MG TABLET PO SCH ×3 (05:30→22:28)
[2016-10-05] MEDS: POTASSIUM CHLORIDE 10 MEQ TABLET.SA PO SCH ×2 (10:52→22:29)
[2016-10-05] MEDS: ASPIRIN 81 MG TABLET, ENT COATED PO SCH (10:52)
[2016-10-05] MEDS: POLYETHYLENE GLYCOL 3350 POWDER 17 GM/1 PACKET PO SCH (10:52)
[2016-10-05] MEDS: DOCUSATE SODIUM 100 MG CAPSULE PO SCH ×2 (10:52→18:26)
--- NOTE | 2016-10-05 14:22 | PDOC PROGRESS REPORT ---
Subjective Progress Note for:: 10/05/16 Subjective:: Patient seen on morning rounds. She is presently resting in bed. She states she is feeling better, her flank pain is gone. She finally had a bowel movement. She denies any nausea, abdominal pain or diarrhea. Negative chest pain, dyspnea or dizziness. Her only complaint is a headache. Rest of review of systems is negative Physical Exam Vital Signs: Temp Pulse Resp BP Pulse Ox 97.9 F 64 20 165/86 H 98 10/05/16 07:31 10/05/16 07:31 10/05/16 07:31 10/05/16 07:31 10/05/16 07:31 Intake & Output 10/04/16 10/05/16 10/06/16 06:59 06:59 06:59 Intake Total 3047 1154 Output Total 1700 2200 Balance 1347 -1046 Weight 89.7 kg 89.7 kg General appearance: PRESENT: no acute distress, obese, well-developed, well- nourished Head exam: PRESENT: atraumatic, normocephalic Eye exam: PRESENT: conjunctiva pink, EOMI, PERRLA. ABSENT: scleral icterus Ear exam: PRESENT: normal external ear exam Mouth exam: PRESENT: moist, tongue midline Neck exam: ABSENT: carotid bruit, JVD, lymphadenopathy, thyromegaly Respiratory exam: PRESENT: clear to auscultation benny. ABSENT: rales, rhonchi, wheezes Cardiovascular exam: PRESENT: RRR. ABSENT: diastolic murmur, rubs, systolic murmur Vascular exam: PRESENT: normal capillary refill GI/Abdominal exam: PRESENT: normal bowel sounds, soft. ABSENT: distended, guarding, mass, organolmegaly, rebound, tenderness Rectal exam: PRESENT: deferred Extremities exam: PRESENT: full ROM. ABSENT: calf tenderness, clubbing, pedal edema Neurological exam: PRESENT: alert, awake, oriented to person, oriented to place , oriented to time, oriented to situation, CN II-XII grossly intact. ABSENT: motor sensory deficit Psychiatric exam: PRESENT: appropriate affect, normal mood. ABSENT: homicidal ideation, suicidal ideation Skin exam: PRESENT: dry, intact, warm. ABSENT: cyanosis, rash Results Laboratory Results: 10/05/16 04:25 10/05/16 04:25 10/05/16 10/05/16 04:25 04:25 WBC 9.7 RBC 3.61 L Hgb 11.3 L Hct 32.0 L MCV 89 MCH 31.2 MCHC 35.2 RDW 12.9 Plt Count 118 L Seg Neutrophils % 58.7 Lymphocytes % 21.2 Monocytes % 19.7 H Eosinophils % 0.0 Basophils % 0.4 Absolute Neutrophils 5.7 Absolute Lymphocytes 2.1 Absolute Monocytes 1.9 H Absolute Eosinophils 0.0 Absolute Basophils 0.0 Sodium 143.4 Potassium 3.3 L Chloride 102 Carbon Dioxide 27 Anion Gap 14 BUN 3 L Creatinine 0.63 Est GFR ( Amer) > 60 Est GFR (Non-Af Amer) > 60 Glucose 111 H Calcium 8.2 L Magnesium 1.6 Impressions: Limited or Localized CT 10/02/16 18:56 IMPRESSION: Minimal right-sided retroperitoneal fat stranding, nonspecific. No calcified urinary stones or evidence of obstruction. Assessment & Plan - Diagnosis (1) Bacteremia Is this a current diagnosis for this admission?: YesPlan: Patient reportedly had positive blood cultures 2 out of 2 bottles for gram- negative rods at [facility]. The blood cultures from [facility] grew ESBL. We will continue IV Invanz. Repeat blood cultures today, if negative tomorrow place PICC line and prepare for discharge (2) Pyelonephritis Is this a current diagnosis for this admission?: YesPlan: Patient had been treated for a UTI 4 days prior to arrival with Macrodantin. Urine culture and sensitivity showed bacteria to be resistant to Macrodantin. Blood cultures at [facility] both grew ESBL Microbiology states urine culture shows ESBL. Patient was placed on IV Invanz. (3) Hypokalemia Is this a current diagnosis for this admission?: YesPlan: Repleted we'll continue to monitor. (4) Hypomagnesemia Is this a current diagnosis for this admission?: YesPlan: repleted continue to monitor. (5) CHER (obstructive sleep apnea) Is this a current diagnosis for this admission?: YesPlan: CPAP at (6) Thrombocytopenia Is this a current diagnosis for this admission?: YesPlan: most likely secondary sepsis (7) Asthma Qualifiers: Asthma severity: unspecified severity Asthma complication type: uncomplicated Qualified Code(s): J45.909 - Unspecified asthma, uncomplicated Is this a current diagnosis for this admission?: YesPlan: Continue inhalers and when necessary nebulizer treatments. (8) PTSD (post-traumatic stress disorder) Is this a current diagnosis for this admission?: YesPlan: Continue home medications. - Time Time Spent with patient: 25-34 minutes Medications reviewed and adjusted accordingly: Yes Anticipated discharge: Home with Homehealth Within: within 24 hours
[2016-10-05] MEDS: LOSARTAN POTASSIUM 50 MG TABLET PO SCH (16:01)
[2016-10-05] MEDS: ESTROGENS,CONJUGATED 0.625 MG TABLET PO SCH (16:06)
[2016-10-05] MEDS: MORPHINE SULFATE 10 MG/ML INJ IV PRN (16:07)
[2016-10-05] MEDS: FENOFIBRATE NANOCRYSTALLIZED 48 MG TABLET PO SCH (16:07)
[2016-10-05] MEDS: ERTAPENEM SODIUM 1 GM in NORMAL SALINE 50 ML IV SCH (18:00)
[2016-10-05] MEDS ORDERED: ERTAPENEM SODIUM INJ 1 GM VIAL ONE (18:39)
[2016-10-05] MEDS: LATANOPROST 0.005% OPH SOLN 2.5 ML OU SCH (23:28)
[2016-10-06] MEDS: ACETAMINOPHEN 325 MG TABLET PO PRN (02:44)
[2016-10-06 04:57] LABS: ANION GAP 13 (5-19); BLOOD UREA NITROGEN 4 mg/dL (7-20); CALCIUM 8.6 mg/dL (8.4-10.2); CARBON DIOXIDE 28 mmol/L (22-30); CHLORIDE 102 mmol/L (98-107); CREATININE RESULT 0.72 mg/dL (0.52-1.25); GLUCOSE 116 mg/dL (75-110); POTASSIUM 3.8 mmol/L (3.6-5.0); SODIUM 142.7 mmol/L (137-145)
[2016-10-06] MEDS: BUPROPION HCL 100 MG TABLET PO SCH ×2 (05:26→15:48)
[2016-10-06] MEDS: KETOROLAC TROMETHAMINE INJ/PF 30 MG/1 ML SDV IV PRN ×3 (05:29→15:47)
[2016-10-06] MEDS: ASPIRIN 81 MG TABLET, ENT COATED PO SCH (10:06)
[2016-10-06] MEDS: LOSARTAN POTASSIUM 50 MG TABLET PO SCH (10:06)
[2016-10-06] MEDS: POLYETHYLENE GLYCOL 3350 POWDER 17 GM/1 PACKET PO SCH (10:10)
[2016-10-06] MEDS: DOCUSATE SODIUM 100 MG CAPSULE PO SCH (10:10)
[2016-10-06] MEDS: FENOFIBRATE NANOCRYSTALLIZED 48 MG TABLET PO SCH (15:48)
[2016-10-06] MEDS: ESTROGENS,CONJUGATED 0.625 MG TABLET PO SCH (15:48)
[2016-10-06 16:31] VITALS: BP 117/64
--- NOTE | 2016-10-06 17:29 | PDOC DISCHARGE SUMMARY ---
General - Admit/Disc Date/PCP Admission Date/Primary Care Provider: 10/03/16 00:41 Discharge Date: 10/06/16 - Discharge Diagnosis (1) Bacteremia Is this a current diagnosis for this admission?: YesSummary: Repeat blood cultures are negative at 24 hours (2) Pyelonephritis Is this a current diagnosis for this admission?: YesSummary: Pain is resolved. (3) Hypokalemia Is this a current diagnosis for this admission?: YesSummary: Repleaded (4) Hypomagnesemia Is this a current diagnosis for this admission?: YesSummary: Repleaded (5) CHER (obstructive sleep apnea) Is this a current diagnosis for this admission?: YesSummary: CPAP at at bedtime (6) Thrombocytopenia Is this a current diagnosis for this admission?: YesSummary: Resolved (7) Asthma Is this a current diagnosis for this admission?: YesSummary: Continue when necessary inhalers (8) PTSD (post-traumatic stress disorder) Is this a current diagnosis for this admission?: YesSummary: continue current medications - Additional Information Resuscitation Status: Full Code Discharge Diet: Regular Discharge Activity: Activity As Tolerated, Balance Activity w/Rest Home Medications: Aspirin [Adult Low Dose Aspirin EC] 81 mg PO DAILY 10/03/16 Brimonidine Tartrate [Alphagan P] 1 drop OU BID 10/03/16 Bupropion HCl [Wellbutrin Xl 300mg 24hr Tablet] 300 mg PO DAILY 10/03/16 Chlorpromazine HCl [Thorazine 50 mg Tablet] 50 mg PO BIDP PRN 10/03/16 Estrogens,Conjugated [Premarin 0.625 mg Tablet] 0.0625 mg PO DAILY 10/03/16 Fenofibrate Nanocrystallized [Fenofibrate] 48 mg PO DAILY 10/03/16 Latanoprost [Xalatan 0.005% Oph Soln 2.5 ml] 1 drop OU QHS 10/03/16 Losartan Potassium [Cozaar 100 mg Tablet] 100 mg PO DAILY 10/03/16 Lurasidone HCl [Latuda] 60 mg PO DAILY 10/03/16 Zolpidem Tartrate [Ambien] 10 mg PO HSP PRN 10/03/16 Acetaminophen [Tylenol 325 mg Tablet] 650 mg PO Q4HP PRN tablet 10/06/16 Ertapenem Sodium [Invanz Inj 1 gm Vial] 1 gm IV DAILY #7 vial 10/06/16 History of Present Illness Patient complains of: Right flank pain and fever History of Present Illness: SASHA DURANT is a 56 year old -[place] female with underlying mild asthma, esophageal reflux disease, occasional vertigo, post traumatic stress disorder, hyperlipidemia, partial hearing loss, occasional urinary incontinence , arthritis, history of hypokalemia, obstructive sleep apnea, with uncertain CPAP settings, and occasional vaginal yeast infection, but with no specific history of urinary tract infections or pyelonephritis, who presents to the emergency room for evaluation of above complaint. Patient has been discussed with emergency room physician who evaluated the patient. For the past 4 days, she's had intermittent fever and shaking chills along with nausea, poor by mouth intake, back pain, primarily on the right and some right flank pain. Pain is combination of sharp and cramping, increasing with movement. No diarrhea. Was noted to have leukocytosis 2 days ago in the emergency room, was treated with Rocephin, and was sent home with a prescription for Macrodantin. patient states she took as prescribed. However, above symptoms have progressed. Culture results returned showing gram-negative rods. Patient was contacted and was told to come back to the emergency room for further evaluation and treatment. Hospital Course Hospital Course: Patient was admitted to the hospitalist service. She was started on IV broad- spectrum antibiotics. Blood cultures and urine cultures done in the hospital grew ESBL. Her IV antibiotics were changed to Invanz. Her pain was treated with IV Toradol. Pain resolved over the next 2 days. repeat blood cultures were obtained which after 24 hours no bacteria. Patient was sent for PICC line catheter, arrangements were made for 1 more week of IV Invanz at home. Patient will be discharged home this evening with her family. Physical Exam Vital Signs: Temp Pulse Resp BP Pulse Ox 98.9 F 95 16 117/64 100 10/06/16 16:30 10/06/16 16:30 10/06/16 16:30 10/06/16 16:30 10/06/16 16:30 Intake & Output 10/05/16 10/06/16 10/07/16 06:59 06:59 06:59 Intake Total 1154 1160 Output Total 2200 2500 Balance -1046 -1340 Weight 89.7 kg 84.7 kg General appearance: PRESENT: no acute distress, well-developed, well-nourished Head exam: PRESENT: atraumatic, normocephalic Eye exam: PRESENT: conjunctiva pink, EOMI, PERRLA. ABSENT: scleral icterus Ear exam: PRESENT: normal external ear exam Mouth exam: PRESENT: moist, tongue midline Neck exam: ABSENT: carotid bruit, JVD, lymphadenopathy, thyromegaly Respiratory exam: PRESENT: clear to auscultation benny. ABSENT: rales, rhonchi, wheezes Cardiovascular exam: PRESENT: RRR. ABSENT: diastolic murmur, rubs, systolic murmur Pulses: PRESENT: normal dorsalis pedis pul Vascular exam: PRESENT: normal capillary refill GI/Abdominal exam: PRESENT: normal bowel sounds, soft. ABSENT: distended, guarding, mass, organolmegaly, rebound, tenderness Rectal exam: PRESENT: deferred Extremities exam: PRESENT: full ROM. ABSENT: calf tenderness, clubbing, pedal edema Neurological exam: PRESENT: alert, awake, oriented to person, oriented to place , oriented to time, oriented to situation, CN II-XII grossly intact. ABSENT: motor sensory deficit Psychiatric exam: PRESENT: appropriate affect, normal mood. ABSENT: homicidal ideation, suicidal ideation Skin exam: PRESENT: dry, intact, warm. ABSENT: cyanosis, rash Results Laboratory Results: 10/05/16 04:25 10/06/16 04:33 10/06/16 04:33 Sodium 142.7 Potassium 3.8 Chloride 102 Carbon Dioxide 28 Anion Gap 13 BUN 4 L Creatinine 0.72 Est GFR ( Amer) > 60 Est GFR (Non-Af Amer) > 60 Glucose 116 H Calcium 8.6 Impressions: Limited or Localized CT 10/02/16 18:56 IMPRESSION: Minimal right-sided retroperitoneal fat stranding, nonspecific. No calcified urinary stones or evidence of obstruction. Guidance Fluoroscopy 10/06/16 00:00 IMPRESSION: SUCCESSFUL PLACEMENT OF A 5 FR DUAL LUMEN 41 CM PICC IN THE left basilic VEIN. Interventional Vascular Procedure 10/06/16 00:00 IMPRESSION: SUCCESSFUL PLACEMENT OF A 5 FR DUAL LUMEN 41 CM PICC IN THE left basilic VEIN. PICC Line Insertion 10/06/16 00:00 IMPRESSION: SUCCESSFUL PLACEMENT OF A 5 FR DUAL LUMEN 41 CM PICC IN THE left basilic VEIN. Qualifiers PATEINT BEING DISCHARGED WITH ANY OF THE FOLLOWING DIAGNOSIS?: No Plan Discharge Plan: Home Time Spent: Less than 30 Minutes
[2016-10-06] MEDS ORDERED: ERTAPENEM SODIUM 1 GM in NORMAL SALINE 50 ML IV SCH (18:00)
== END 2016-10-06 17:28 | disposition home health service (06) | DRG 690 ==
LOC: ER 16:19 → UNDOADMIN 21:51 → EH 21:51 → 4S 10-03 02:15 → EH 10-03 02:15
PROVIDERS: ADMIT Family Medicine; ATTEND Family Medicine
PROC: 02HV33Z Insertion of Infusion Device into Superior Vena Cava, Percutaneous Approach (ICD-10-PCS; principal; 2016-10-06)
PROC: B548ZZA Ultrasonography of Superior Vena Cava, Guidance (ICD-10-PCS; 2016-10-06)
PROC: B518YZA Fluoroscopy of Superior Vena Cava using Other Contrast, Guidance (ICD-10-PCS; 2016-10-06)
DX: N12 Tubulo-interstitial nephritis, not specified as acute or chronic (principal); R78.81 Bacteremia; Z16.12 Extended spectrum beta lactamase (ESBL) resistance; J44.9 Chronic obstructive pulmonary disease, unspecified; K21.9 Gastro-esophageal reflux disease without esophagitis; E78.5 Hyperlipidemia, unspecified; E87.6 Hypokalemia; E83.42 Hypomagnesemia; D69.6 Thrombocytopenia, unspecified; B96.89 Other specified bacterial agents as the cause of diseases classified elsewhere; G47.33 Obstructive sleep apnea (adult) (pediatric); F43.10 Post-traumatic stress disorder, unspecified
CPT/HCPCS: 36415; 36569; 76380; 76937; 77001; 80048; 80053; 81001; 83735; 85025; 85027; 87040; 87086; 94660; 96365; 96366; 96367; 96375; 99291; J0692; J0696; J1200; J1335; J1642; J1885; J2270; J2405; J2543; J3480; J3490; J7030

== ENCOUNTER 2016-10-13 15:29 | Emergency (ER) | payer OTHER ==
[2016-10-13] MEDS ORDERED: ACETAMINOPHEN 325 MG TABLET PO ONE (16:31)
--- NOTE | 2016-10-13 16:36 | ER Document Report ---
HPI - HPI Patient complains to provider of: request for PICC line removal Onset: This afternoon Onset/Duration: Sudden Quality of pain: No pain Pain Level: 0 Context: Patient states that she was receiving outpatient antibiotic treatment after having Escherichia coli in her blood stream as well as urine. Patient states that she finished her antibiotic treatment today and wants to have the PICC line removed. Patient does not have an order for removal with her. Patient does complain of some mild headache pain that she attributes to the medication she's been taking. Patient denies any fever, abdominal pain, back pain, nausea or vomiting. Associated Symptoms: Headache. denies: Chest pain, Earache, Fever, Nausea, Vomiting Exacerbated by: Denies Relieved by: Denies Similar symptoms previously: No Recently seen / treated by doctor: Yes - ROS ROS below otherwise negative: Yes Systems Reviewed and Negative: Yes All other systems reviewed and negative - CONSTITUTIONAL Constitutional: DENIES: Fever - NEURO Neurology: REPORTS: Headache. DENIES: Weakness, Vision blurred - RESPIRATORY Respiratory: DENIES: Trouble Breathing, Coughing - GASTROINTESTINAL Gastrointestinal: DENIES: Abdominal Pain, Nausea, Patient vomiting - URINARY Urinary: DENIES: Dysuria, Urgency, Frequency - REPRODUCTIVE Reproductive: DENIES: : - MUSCULOSKELETAL Musculoskeletal: REPORTS: Back Pain. DENIES: Extremity pain - DERM Skin Color: Normal Skin Problems: None Past Medical History - General Information source: Patient - Social History Smoking Status: Never Smoker Frequency of alcohol use: None Drug Abuse: None Occupation: none Family History: Reviewed & Not Pertinent Patient has suicidal ideation: No Patient has homicidal ideation: No - Past Medical History Cardiac Medical History: Reports: Hx Coronary Artery Disease, Hx Hypercholesterolemia, Hx Hypertension Denies: Hx Congestive Heart Failure, Hx DVT, Hx Heart Attack, Hx Pulmonary Embolism Pulmonary Medical History: Reports: Hx Asthma, Hx Bronchitis - gets each year, Hx Sleep Apnea - Uncertain CPAP settings. Room air. Denies: Hx COPD, Hx Pneumonia, Hx Tuberculosis Neurological Medical History: Denies: Hx Cerebrovascular Accident, Hx Seizures Endocrine Medical History: Denies: Hx Diabetes Mellitus Type 1, Hx Diabetes Mellitus Type 2, Hx Hyperthyroidism, Hx Hypothyroidism Renal/ Medical History: Denies: Hx Peritoneal Dialysis GI Medical History: Reports: Hx Gastroesophageal Reflux Disease. Denies: Hx Cirrhosis, Hx Hepatitis Musculoskeltal Medical History: Reports Hx Arthritis - r hand Psychiatric Medical History: Reports: Hx Post Traumatic Stress Disorder Denies: Hx Depression Infectious Medical History: Denies: Hx Hepatitis Past Surgical History: Reports: Hx Hysterectomy, Hx Orthopedic Surgery - carpal tunnel repair. Denies: Hx Pacemaker - Immunizations Immunizations up to date: Yes Hx Diphtheria, Pertussis, Tetanus Vaccination: Yes - UTD Hx Pneumococcal Vaccination: 04/15/12 Vertical Provider Document - CONSTITUTIONAL Agree With Documented VS: Yes Exam Limitations: No Limitations General Appearance: WD/WN, No Apparent Distress - INFECTION CONTROL TRAVEL OUTSIDE OF THE [place] IN LAST 30 DAYS: No - HEENT HEENT: Atraumatic, Normal ENT Exam, Normocephalic - NECK Neck: Normal Inspection, Supple, Other - No meningismus. negative: Lymphadenopathy-Left, Lymphadenopathy-Right - RESPIRATORY Respiratory: Breath Sounds Normal, No Respiratory Distress, Chest Non-Tender O2 Sat by Pulse Oximetry: 97 - CARDIOVASCULAR Cardiovascular: Regular Rate, Regular Rhythm, No Murmur - BACK Back: Normal Inspection. negative: CVA Tenderness-Right, CVA Tenderness-Left - MUSCULOSKELETAL/EXTREMETIES Musculoskeletal/Extremeties: MAEW, FROM - NEURO Level of Consciousness: Awake, Alert, Appropriate Motor/Sensory: No Motor Deficit - DERM Integumentary: Warm, Dry, No Rash Adult Front & Back Diagram: 1 - PICC line to LUE Course - Re-evaluation Re-evalutation: 10/13/16 16:[address] Wyatt lees patient presentation and request for PICC line removal, reviewed patient's chart states that she would prefer to have a urine culture checked prior to discontinuing PICC line. States that if urine culture is okay, patient can obtain an outpatient order for removal from her primary provider who can have her home health nurse remove the PICC - Vital Signs Vital signs: Temp Pulse Resp BP Pulse Ox 98.2 F 72 16 125/79 97 10/13/16 15:43 10/13/16 15:43 10/13/16 15:43 10/13/16 15:43 10/13/16 15:43 Discharge - Discharge Clinical Impression: request for PICC line removal, Hx of pyelonephritis Condition: Stable Disposition: HOME, SELF-CARE Additional Instructions: Return immediately for any new or worsening symptoms Followup with your primary care provider, call tomorrow to make a followup appointment Urine culture is pending, we should have results in about 2 days. You can call to speak with our nurse who manages outpatient culture results, Toya at [phone]. If your your culture results are normal, your primary care provider can write an outpatient order for PICC line removal to be completed by her home health nurse. Referrals: [facility] [Provider Group] - Follow up as needed
[2016-10-13 17:12] VITALS: BP 132/76
== END 2016-10-13 17:11 | disposition home or self-care (01) ==
LOC: ER 15:29
DX: Z45.2 Encounter for adjustment and management of vascular access device (principal); R51 Headache; I25.10 Atherosclerotic heart disease of native coronary artery without angina pectoris; E78.00 Pure hypercholesterolemia, unspecified; I10 Essential (primary) hypertension; Z90.710 Acquired absence of both cervix and uterus; Z79.2 Long term (current) use of antibiotics
CPT/HCPCS: 87086; 99283